=== PATIENT | female | born 1940 | race Caucasian/White ===

== ENCOUNTER → 2016-05-31 | Outpatient (CLI) | payer MEDICARE ==
[~2016-05-31] MED LIST: ASPIRIN ADULT L81 M2 PO; CALCIUM1 CAP PO; CARDIZEM CD180 MG PO; COREG12.5 MG PO; FISH OIL 500MG500 MG PO; HYDROCODONE BIT1 T11 PO; K-DUR 20MEQ20 MEQ; LANOXIN125 MCG/2. PO; LASIX40 MG PO; LOPRESSOR100 MG PO; MEGA MULTIVITAM1 TAB PO; PROTONIX40 MG PO; RISPERDAL0.5 MG PO; SINGULAIR10 MG PO; VITAMIN C500 MG PO; XARELTO10 PO; ZOCOR20 MG PO; [UNRECOGNIZED DRUG - OTHER] PO
[2016-05-31 15:49] LABS: BASO % 0.5 % (0.0-1.0); EOS # 0.1 10*3/uL (0.0-0.4); EOS % 2.1 % (1.0-4.0); HEMATOCRIT 41.8 % (37.0-47.0); HEMOGLOBIN 13.2 g/dl (12.0-16.0); LYMPH # 2.4 10*3/uL (1.3-4.4); LYMPH % 42.4 % (27.0-41.0); MEAN CELL VOLUME 86.9 fl (81.0-99.0); MEAN CORPUSCULAR HGB 27.4 pg (27.0-31.0); MEAN CORPUSCULAR HGB CONC 31.6 g/dl (33.0-37.0); MEAN PLATELET VOLUME 9.9 fl (9.6-12.3); MONO # 0.6 10*3/uL (0.1-1.0); MONO % 10.4 % (3.0-9.0); NEUT # 2.5 10*3/uL (2.3-7.9); NEUT % 44.2 % (47.0-73.0); PLATELET COUNT AUTOMATED 153 10*3/uL (130-400); RED BLOOD COUNT 4.81 10*6/uL (4.10-5.10); RED CELL DISTRI WIDTH 13.9 % (0-14.5); WHITE BLOOD COUNT 5.7 10*3/uL (4.8-10.8)
[2016-05-31 16:04] LABS: HEMOGLOBIN A1c 5.9 % (4.8-5.6)
[2016-05-31 16:17] LABS: ALBUMIN 3.7 gm/dl (3.1-4.5); ALKALINE PHOSPHATASE 137 U/L (45-117); BILIRUBIN, DIRECT 0.1 mg/dL (0.0-0.2); BILIRUBIN, TOTAL 0.6 mg/dl (0.2-1.0); BUN 18 mg/dl (7-24); CARBON DIOXIDE 32 mmol/L (21-32); CHLORIDE 106 mmol/L (98-107); EST GLOM FILT AFRICAN AMERICAN > 60 ml/min; GLUCOSE 79 mg/dL (65-99); POTASSIUM 4.1 mmol/L (3.5-5.1); SGOT/AST 23 IU/L (3-35); SGPT/ALT 28 U/L (12-78); SODIUM 144 mmol/L (136-145); TOTAL PROTEIN 7.3 gm/dL (6.4-8.2)
== END | disposition home or self-care (01) ==
LOC: LAB 15:33
PROVIDERS: Family Medicine
DX: E11.9 Type 2 diabetes mellitus without complications (principal)

== ENCOUNTER → 2017-01-24 | Outpatient (CLI) | payer MEDICARE ==
[2017-01-24 11:04] LABS: BASO % 0.5 % (0.0-1.0); EOS # 0.1 10*3/uL (0.0-0.4); EOS % 1.8 % (1.0-4.0); HEMATOCRIT 41.6 % (37.0-47.0); HEMOGLOBIN 13.3 g/dl (12.0-16.0); LYMPH % 32.4 % (27.0-41.0); MEAN CELL VOLUME 88.7 fl (81.0-99.0); MEAN CORPUSCULAR HGB 28.4 pg (27.0-31.0); MEAN PLATELET VOLUME 10.8 fl (9.6-12.3); MONO # 0.6 10*3/uL (0.1-1.0); MONO % 9.3 % (3.0-9.0); NEUT # 3.5 10*3/uL (2.3-7.9); NEUT % 55.5 % (47.0-73.0); PLATELET COUNT AUTOMATED 169 10*3/uL (130-400); RED BLOOD COUNT 4.69 10*6/uL (4.10-5.10); RED CELL DISTRI WIDTH 13.4 % (0-14.5); WHITE BLOOD COUNT 6.3 10*3/uL (4.8-10.8)
[2017-01-24 11:29] LABS: ALBUMIN 3.8 gm/dl (3.1-4.5); ALKALINE PHOSPHATASE 124 U/L (45-117); BUN 17 mg/dl (7-24); CHLORIDE 103 mmol/L (98-107); HDL CHOLESTEROL 69 mg/dl (40-60); POTASSIUM 3.9 mmol/L (3.5-5.1); SODIUM 144 mmol/L (136-145); TOTAL PROTEIN 7.4 gm/dL (6.4-8.2)
[2017-01-24 11:34] LABS: BILIRUBIN, DIRECT 0.1 mg/dL (0.0-0.2); CHOLESTEROL 134 mg/dL (<200); CREATININE 0.82 mg/dL (0.55-1.02); LDL CHOLESTEROL 53 mg/dL (9-159); SGOT/AST 22 IU/L (3-35); SGPT/ALT 29 U/L (12-78); THYROID STIM HORMONE (HS) 0.837 uIU/ml (0.358-4.75); THYROXINE (T4) TOTAL 13.4 ug/dl (4.8-13.9); TRIGLYCERIDES 58 mg/dl (<150); VLDL CHOLESTEROL 12 mg/dL (6-40)
== END | disposition home or self-care (01) ==
LOC: LAB 10:26
PROVIDERS: Family Medicine
DX: I10 Essential (primary) hypertension (principal); E11.9 Type 2 diabetes mellitus without complications; E55.9 Vitamin D deficiency, unspecified; R44.3 Hallucinations, unspecified

== ENCOUNTER → 2017-03-15 | Outpatient (CLI) | payer MEDICARE | END | disposition home or self-care (01) | LOC: CT 08:00 | DX: R41.82 Altered mental status, unspecified (principal); R44.3 Hallucinations, unspecified ==

== ENCOUNTER → 2017-07-21 | Outpatient (CLI) | payer MEDICARE ==
[2017-07-21 11:20] LABS: ALBUMIN 3.9 gm/dl (3.1-4.5); ALKALINE PHOSPHATASE 135 U/L (45-117); BUN 19 mg/dl (7-24); CHLORIDE 103 mmol/L (98-107); CREATININE 0.76 mg/dL (0.55-1.02); POTASSIUM 3.8 mmol/L (3.5-5.1); SGOT/AST 23 IU/L (3-35); SGPT/ALT 33 U/L (12-78); SODIUM 142 mmol/L (136-145); TOTAL PROTEIN 7.5 gm/dL (6.4-8.2)
[2017-07-25 18:07] LABS: METHYLMALONIC ACID 706961 310 nmol/L (0-378)
== END | disposition home or self-care (01) ==
LOC: LAB 10:16
PROVIDERS: Psychiatry & Neurology Neurology
DX: R44.3 Hallucinations, unspecified (principal); R41.89 Other symptoms and signs involving cognitive functions and awareness; Z79.899 Other long term (current) drug therapy

== ENCOUNTER 2017-12-23 07:26 | Inpatient (IN) | payer MEDICARE ==
[2017-12-23] VITALS (8 sets, daily range): BP systolic 105–148; BP diastolic 54–92
[~2017-12-23] VITALS: Ht 157.4 cm; Wt 70.0 kg
--- NOTE | ~2017-12-23 | EKG ---
[place], [place] ELECTROCARDIOGRAM REPORT NAME: DANIEL TYSON UNIT #: [id number] ROOM: 508 DOCTOR: EVAN DRAFT REPORT BIRTHDATE: [birth year] [facility] Test Date: 2017-12-23 Test Time: 08:00:17 Pat Name: DANIEL TYSON Department: Room: 508 Gender: F Health Science Specialist: JENNIFER : 1940 Requested By: ANOOP SANTAMARIA Order Number: [id number] Reading MD: Josh Flowers MD Measurements Intervals [place] Rate: 83 P: VT: QRS: 78 QRSD: 98 T: 56 QT: 434 QTc: 510 Interpretive Statements Atrial fibrillation Prolonged QT interval No previous ECG available for comparison Electronically Signed On 12-24-2017 15:25:37 PST by Josh Flowers MD CM:EKGRPT:ELECTROCARDIOGRAM REPORT [id number] ANOOP GORDON DRAFT REPORT ANOOP SANTAMARIA MD
--- NOTE | ~2017-12-23 | CON ---
[place], [place] REPORT OF CONSULTATION NAME: DANIEL TYSON UNIT #: [id number] ROOM: 508 DOCTOR: PABLO PHD ELSIE BIRTHDATE: [birth year] DOS: 12/25/2017 HISTORY OF PRESENT ILLNESS: The patient is a 77-year-old female with a history of dementia and mild intellectual disability, who was referred by the hospitalist for competency evaluation at the present time. The patient is on the 5th floor at [facility]. CT of her head on 12/29/2017 was negative for acute findings. The patient is a poor historian. She states she was never and has no children and left school after the eighth grade. She reports that her doctor did not allow her to work for her medical record. She has a history of intellectual disability and her mother was her guardian until her about a year ago. The patient lives with her caregiver, Glory, who has the paperwork for guardianship, but has not completed the process. I attempted to reach Glory, but she did not answer the phone. SOCIAL HISTORY: The patient denied alcohol, tobacco and illegal drug use. PAST MEDICAL HISTORY: Anxiety, atrial fibrillation, dementia, depression, hypertension, GERD, hyperlipidemia, mild intellectual disability. MEDICATIONS: Aspirin, K-Dur, Zoloft, Aricept, Cardizem, Singulair, Lasix, Xarelto, Humalog, Xanax. The patient was sitting comfortably in no apparent distress. She was oriented to person, month and day. She gave the year as 1999 and the president as Yonis. She could not give any current events. Eye contact and social skills were appropriate. She was pleasant and cooperative with evaluation. Affect was restricted in range and mood was stable. The patient denied suicidal and homicidal ideation, plan, and intent. She denied a need or desire for mental health treatment at this time. Speech was within normal limits with respect to rhythm, rate, volume and tone. Thought process was confused. Thought content was negative for hallucinations or delusions. Insight and judgment were fair. The patient was not able to discuss her medical conditions or medications. Glory helps her to take care of her medications and the patient states that she is alone for the majority of the day while Glory is at work. The patient earned a score of 6/30 on the Aurelio Cognitive assessment with an intact score being 26. Mini trials B Necker cube copy and clock drawing were impaired. The patient was not able to draw all of the numbers on the clock or put the hands on it. Attention was impaired with the patient not being able to produce 5 digits forward or 3 digits backwards. She made multiple errors of commission on a test of vigilance and could not complete any serial 7 subtractions. With respect to language abilities, she was not able to repeat any sentences correctly and made many errors of omission and commission. She was not able to produce any words in 1 minute on a test of verbal fluency. She did not complete any correct, naming was impaired with the patient not being able to name any animals correctly. Verbal abstraction was noteworthy for concreteness. On the test of memory, the patient was able to recall 2/5 and 1/5 words on immediate recall trials and 0/5 words for the delayed recall. Performance did not improve with category cues and she was able to identify 1/5 words correctly with multiple choice. She demonstrated significant ease of confusion during this test. SUMMARY: Overall, the patient demonstrated significant cognitive deficits in [place], [place] REPORT OF CONSULTATION NAME: DANIEL TYSON UNIT #: [id number] ROOM: 508 DOCTOR: PHD ELSIE MALONEY BIRTHDATE: [birth year] the areas of executive functioning, attention, language and memory. Contributing factors likely include her history of intellectual disability. Other contributing factors may include her history of hypertension, hyperlipidemia, depression and medication effects. In my opinion, the patient does not appear competent to make her own medical decisions at this time. She would benefit from establishing a guardian. Paperwork for emergency guardianship cannot be filed as the patient is a [place] resident. DIAGNOSES: Rule out intellectual disability, mild; unspecified neurocognitive disorder; major depressive disorder, recurrent, unspecified. RECOMMENDATIONS: The patient would benefit from establishing a guardian. Her caregiver has paperwork for her medical record, but it has not yet completed the process yet. Attempts to reach her caregiver were unsuccessful. PLAN: Given the patient's cognitive deficits and most recent episode of wandering at night, she would benefit from increased care and supervision. The patient's mood and behavior appear stable at this time and she does not appear to be appropriate candidate for the [facility]. The patient denied a need or desire for mental health treatment. Thank you very much for this consult. Raisa Maloney, PhD CM:CONSTR:REPORT OF CONSULTATION 1647 12/26/17 0153 [id number]
[~2017-12-23 07:26] MED LIST changes: -LOPRESSOR100 MG PO; +LOPRESSOR50 M1 PO
[2017-12-23 08:01] LABS: BILIRUBIN NEGATIVE (NEGATIVE); BLOOD NEGATIVE (NEGATIVE); CLARITY SL CLOUDY (CLEAR); COLOR YELLOW (YELLOW); GLUCOSE 2+ (NEGATIVE); KETONE 1+ (NEGATIVE); LEUKO ESTERASE NEGATIVE (NEGATIVE); NITRITE NEGATIVE (NEGATIVE); PH 5.5 (5.0-9.0); SPECIFIC GRAVITY >= 1.030 (1.005-1.030); UROBILINOGEN 0.2 E.U./dl (0.2-1.0)
[2017-12-23 08:17] LABS: BASO % 0.4 % (0.0-1.0); EOS % 0.2 % (1.0-4.0); HEMOGLOBIN 13.8 g/dl (12.0-16.0); LYMPH # 0.9 10*3/uL (1.3-4.4); LYMPH % 9.8 % (27.0-41.0); MEAN CELL VOLUME 89.6 fl (81.0-99.0); MEAN CORPUSCULAR HGB 28.1 pg (27.0-31.0); MEAN CORPUSCULAR HGB CONC 31.4 g/dl (33.0-37.0); MEAN PLATELET VOLUME 10.9 fl (9.6-12.3); MONO # 0.4 10*3/uL (0.1-1.0); MONO % 4.1 % (3.0-9.0); NEUT # 7.8 10*3/uL (2.3-7.9); PLATELET COUNT AUTOMATED 150 10*3/uL (130-400); RED BLOOD COUNT 4.91 10*6/uL (4.10-5.10); RED CELL DISTRI WIDTH 13.5 % (0-14.5); WHITE BLOOD COUNT 9.1 10*3/uL (4.8-10.8)
[2017-12-23 08:26] LABS: ACT PARTIAL THROMBO TIME 30.7 SECONDS (20.8-31.5); INTERNATIONAL NORM RATIO 1.1 (2.0-3.5)
[2017-12-23 08:30] LABS: BACTERIA 2+; RBC 16-20 rbc/hpf (0-2)
[2017-12-23 08:33] LABS: ALBUMIN 3.7 gm/dl (3.1-4.5); ALKALINE PHOSPHATASE 141 U/L (45-117); BUN 19 mg/dl (7-24); CHLORIDE 101 mmol/L (98-107); POTASSIUM 3.5 mmol/L (3.5-5.1); SGOT/AST 27 IU/L (3-35); SGPT/ALT 36 U/L (12-78); SODIUM 138 mmol/L (136-145); TOTAL PROTEIN 7.6 gm/dL (6.4-8.2)
[2017-12-23 09:29] LABS: TROPONIN I < 0.015 ng/ml (<0.045)
[2017-12-23] MEDS ORDERED: AMARYL1 M1 PO (10:59)
[2017-12-23] MEDS ORDERED: XANAX0.25 MG PO (11:00)
[2017-12-23] MEDS ORDERED: ARICEPT10 M1 PO (11:00)
[2017-12-23] MEDS ORDERED: POTASSIUM CHLO20 ME3 PO (11:02)
[2017-12-23] MEDS ORDERED: ZOLOFT50 MG PO (11:05)
[2017-12-23] MEDS ORDERED: CALCIUM 600 +1 EAC2 PO (13:17)
[2017-12-23] MEDS ORDERED: OMEGA 3-6-9 11200 MG PO (13:18)
[2017-12-23] MEDS ORDERED: ASPIRIN CHEWABL81 MG PO (13:19)
[2017-12-23] MEDS ORDERED: MULTIPLE VITAM1 EAC1 PO (13:20)
[2017-12-23] MEDS ORDERED: EMERGEN-C 500500 MG PO (13:20)
[2017-12-23] MEDS ORDERED: AREDS PO (13:21)
[2017-12-24] VITALS: BP 136/66
[2017-12-24 04:00] VITALS: BP 131/47
[2017-12-24 04:49] LABS: BASO % 0.5 % (0.0-1.0); EOS # 0.1 10*3/uL (0.0-0.4); EOS % 1.2 % (1.0-4.0); HEMATOCRIT 38.8 % (37.0-47.0); HEMOGLOBIN 12.2 g/dl (12.0-16.0); LYMPH # 2.5 10*3/uL (1.3-4.4); MEAN CELL VOLUME 87.4 fl (81.0-99.0); MEAN CORPUSCULAR HGB 27.5 pg (27.0-31.0); MEAN CORPUSCULAR HGB CONC 31.4 g/dl (33.0-37.0); MEAN PLATELET VOLUME 10.9 fl (9.6-12.3); MONO # 0.7 10*3/uL (0.1-1.0); NEUT # 3.2 10*3/uL (2.3-7.9); PLATELET COUNT AUTOMATED 151 10*3/uL (130-400); RED BLOOD COUNT 4.44 10*6/uL (4.10-5.10); RED CELL DISTRI WIDTH 13.8 % (0-14.5); WHITE BLOOD COUNT 6.6 10*3/uL (4.8-10.8)
[2017-12-24 05:08] LABS: ALKALINE PHOSPHATASE 119 U/L (45-117); BUN 14 mg/dl (7-24); CHLORIDE 107 mmol/L (98-107); CHOLESTEROL 161 mg/dL (<200); CREATININE 0.66 mg/dL (0.55-1.02); FREE T4 1.15 ng/dl (0.76-1.46); HDL CHOLESTEROL 52 mg/dl (40-60); LDL CHOLESTEROL 90 mg/dL (9-159); POTASSIUM 3.2 mmol/L (3.5-5.1); SGOT/AST 27 IU/L (3-35); SGPT/ALT 31 U/L (12-78); SODIUM 143 mmol/L (136-145); TOTAL PROTEIN 6.2 gm/dL (6.4-8.2); TRIGLYCERIDES 96 mg/dl (<150); VLDL CHOLESTEROL 19 mg/dL (6-40)
[2017-12-24 05:12] LABS: THYROID STIM HORMONE (HS) 0.632 uIU/ml (0.358-4.75)
[2017-12-24 08:00] VITALS: BP 138/54
[2017-12-24 08:23] LABS: VITAMIN D, 25-HYDROXY 62.4 ng/mL (30-100)
[2017-12-24 12:00] VITALS: BP 130/44
[2017-12-24 16:00] VITALS: BP 142/90
[2017-12-24 20:00] VITALS: BP 135/59
[2017-12-25] VITALS: BP 128/62
[2017-12-25 06:09] LABS: BUN 18 mg/dl (7-24); CHLORIDE 103 mmol/L (98-107); CREATININE 0.66 mg/dL (0.55-1.02); POTASSIUM 3.2 mmol/L (3.5-5.1); SODIUM 141 mmol/L (136-145)
[2017-12-25 06:10] LABS: BASO % 0.7 % (0.0-1.0); EOS # 0.1 10*3/uL (0.0-0.4); EOS % 1.3 % (1.0-4.0); HEMATOCRIT 39.4 % (37.0-47.0); HEMOGLOBIN 12.7 g/dl (12.0-16.0); LYMPH # 1.9 10*3/uL (1.3-4.4); LYMPH % 31.1 % (27.0-41.0); MEAN CELL VOLUME 86.8 fl (81.0-99.0); MEAN CORPUSCULAR HGB CONC 32.2 g/dl (33.0-37.0); MEAN PLATELET VOLUME 10.8 fl (9.6-12.3); MONO # 0.7 10*3/uL (0.1-1.0); MONO % 10.7 % (3.0-9.0); NEUT # 3.4 10*3/uL (2.3-7.9); NEUT % 55.9 % (47.0-73.0); PLATELET COUNT AUTOMATED 152 10*3/uL (130-400); RED BLOOD COUNT 4.54 10*6/uL (4.10-5.10); RED CELL DISTRI WIDTH 13.5 % (0-14.5); WHITE BLOOD COUNT 6.1 10*3/uL (4.8-10.8)
[2017-12-25 08:00] VITALS: BP 138/86
[2017-12-25 12:00] VITALS: BP 121/58
[2017-12-25 16:00] VITALS: BP 119/49
[2017-12-25 20:00] VITALS: BP 143/84
[2017-12-26] VITALS: BP 120/80
[2017-12-26 07:02] LABS: BASO % 0.5 % (0.0-1.0); EOS # 0.1 10*3/uL (0.0-0.4); EOS % 1.8 % (1.0-4.0); HEMATOCRIT 41.9 % (37.0-47.0); HEMOGLOBIN 13.2 g/dl (12.0-16.0); LYMPH % 30.6 % (27.0-41.0); MEAN CELL VOLUME 87.1 fl (81.0-99.0); MEAN CORPUSCULAR HGB 27.4 pg (27.0-31.0); MEAN CORPUSCULAR HGB CONC 31.5 g/dl (33.0-37.0); MEAN PLATELET VOLUME 10.9 fl (9.6-12.3); MONO # 0.7 10*3/uL (0.1-1.0); NEUT # 3.7 10*3/uL (2.3-7.9); NEUT % 56.6 % (47.0-73.0); PLATELET COUNT AUTOMATED 166 10*3/uL (130-400); RED BLOOD COUNT 4.81 10*6/uL (4.10-5.10); RED CELL DISTRI WIDTH 13.5 % (0-14.5); WHITE BLOOD COUNT 6.5 10*3/uL (4.8-10.8)
[2017-12-26 07:32] LABS: BUN 18 mg/dl (7-24); CHLORIDE 101 mmol/L (98-107); CREATININE 0.66 mg/dL (0.55-1.02); POTASSIUM 3.6 mmol/L (3.5-5.1); SODIUM 142 mmol/L (136-145)
[2017-12-26 08:00] VITALS: BP 104/58
[2017-12-26 12:00] VITALS: BP 132/70
[2017-12-26 16:00] VITALS: BP 127/77
[2017-12-26 20:00] VITALS: BP 138/80
[2017-12-27] VITALS: BP 145/64
[2017-12-27 06:44] LABS: BASO # 0.1 10*3/uL (0.0-0.1); BASO % 0.8 % (0.0-1.0); EOS # 0.1 10*3/uL (0.0-0.4); HEMATOCRIT 43.4 % (37.0-47.0); LYMPH # 2.6 10*3/uL (1.3-4.4); LYMPH % 39.9 % (27.0-41.0); MEAN CELL VOLUME 87.1 fl (81.0-99.0); MEAN CORPUSCULAR HGB 28.1 pg (27.0-31.0); MEAN CORPUSCULAR HGB CONC 32.3 g/dl (33.0-37.0); MEAN PLATELET VOLUME 10.8 fl (9.6-12.3); MONO # 0.7 10*3/uL (0.1-1.0); MONO % 9.8 % (3.0-9.0); NEUT # 3.1 10*3/uL (2.3-7.9); PLATELET COUNT AUTOMATED 180 10*3/uL (130-400); RED BLOOD COUNT 4.98 10*6/uL (4.10-5.10); RED CELL DISTRI WIDTH 13.3 % (0-14.5); WHITE BLOOD COUNT 6.6 10*3/uL (4.8-10.8)
[2017-12-27 06:58] LABS: BUN 24 mg/dl (7-24); CHLORIDE 101 mmol/L (98-107); POTASSIUM 3.9 mmol/L (3.5-5.1); SODIUM 139 mmol/L (136-145)
[2017-12-27 08:00] VITALS: BP 156/77
[2017-12-27 12:00] VITALS: BP 124/73
[2017-12-27 16:00] VITALS: BP 151/62
[2017-12-27 20:00] VITALS: BP 112/82
[2017-12-28] VITALS: BP 131/65
[2017-12-28 08:00] VITALS: BP 136/40
[2017-12-28 12:00] VITALS: BP 126/64
[2017-12-28 16:00] VITALS: BP 116/60
[2017-12-28 20:00] VITALS: BP 125/61
[2017-12-29] VITALS: BP 146/90
[2017-12-29 08:00] VITALS: BP 143/48
[2017-12-29 12:00] VITALS: BP 130/48
[2017-12-29] MEDS ORDERED: LOPRESSOR25 MG PO (13:23)
== END 2017-12-29 15:28 | disposition home health service (06) | DRG 922 ==
LOC: ED 07:26 → ICCU 08:54 → 5E 08:54 → EDHOLD 08:54 → ICCU 09:25 → 5E 12-24 13:29
PROVIDERS: Emergency Medicine; Family Medicine; Internal Medicine
DX: T68.XXXA Hypothermia, initial encounter (principal); G93.41 Metabolic encephalopathy; E87.2 Acidosis; R65.10 Systemic inflammatory response syndrome (SIRS) of non-infectious origin without acute organ dysfunction; E44.0 Moderate protein-calorie malnutrition; F03.91 Unspecified dementia, unspecified severity, with behavioral disturbance; F33.9 Major depressive disorder, recurrent, unspecified; R73.9 Hyperglycemia, unspecified; R74.8 Abnormal levels of other serum enzymes; E66.3 Overweight; I48.91 Unspecified atrial fibrillation; F41.9 Anxiety disorder, unspecified; K21.9 Gastro-esophageal reflux disease without esophagitis; E78.5 Hyperlipidemia, unspecified; Z96.651 Presence of right artificial knee joint; R82.71 Bacteriuria; R81 Glycosuria; R80.9 Proteinuria, unspecified; E87.6 Hypokalemia; R41.9 Unspecified symptoms and signs involving cognitive functions and awareness; I10 Essential (primary) hypertension; M19.90 Unspecified osteoarthritis, unspecified site; Z96.642 Presence of left artificial hip joint; Z98.51 Tubal ligation status; Z82.49 Family history of ischemic heart disease and other diseases of the circulatory system; Z82.5 Family history of asthma and other chronic lower respiratory diseases; Z79.82 Long term (current) use of aspirin; Z79.899 Other long term (current) drug therapy; Z79.84 Long term (current) use of oral hypoglycemic drugs; Z68.28 Body mass index [BMI] 28.0-28.9, adult; X31.XXXA Exposure to excessive natural cold, initial encounter

== ENCOUNTER 2018-08-15 15:13 | Emergency (ER) | payer MEDICARE ==
[~2018-08-15] VITALS: Ht 167.6 cm; Wt 81.6 kg
[~2018-08-15 15:13] MED LIST changes: +AMARYL1 M1 PO; +AREDS PO; +ARICEPT10 M1 PO; +ASPIRIN CHEWABL81 MG PO; +CALCIUM 600 +1 EAC2 PO; +EMERGEN-C 500500 MG PO; +LOPRESSOR25 MG PO; +MULTIPLE VITAM1 EAC1 PO; +OMEGA 3-6-9 11200 MG PO; +POTASSIUM CHLO20 ME3 PO; +XANAX0.25 MG PO; +ZOLOFT50 MG PO
== END 2018-08-15 18:30 | disposition home or self-care (01) ==
LOC: ED 15:13
DX: M13.862 Other specified arthritis, left knee (principal); I48.91 Unspecified atrial fibrillation; K21.9 Gastro-esophageal reflux disease without esophagitis; I10 Essential (primary) hypertension; E78.5 Hyperlipidemia, unspecified; Z60.2 Problems related to living alone; Z79.899 Other long term (current) drug therapy; Z79.82 Long term (current) use of aspirin; Z96.651 Presence of right artificial knee joint; Z96.642 Presence of left artificial hip joint; X58.XXXA Exposure to other specified factors, initial encounter; Y93.89 Activity, other specified; Y92.098 Other place in other non-institutional residence as the place of occurrence of the external cause; Y99.8 Other external cause status

== ENCOUNTER 2018-11-24 15:41 | Emergency (ER) | payer MEDICARE ==
[~2018-11-24] VITALS: Wt 64.4 kg
[2018-11-24 16:10] LABS: BILIRUBIN NEGATIVE (NEGATIVE); BLOOD NEGATIVE (NEGATIVE); CLARITY CLEAR (CLEAR); COLOR YELLOW (YELLOW); GLUCOSE NEGATIVE (NEGATIVE); KETONE NEGATIVE (NEGATIVE); LEUKO ESTERASE NEGATIVE (NEGATIVE); NITRITE NEGATIVE (NEGATIVE); PH 5.5 (5.0-9.0); SPECIFIC GRAVITY >= 1.030 (1.005-1.030)
[2018-11-24 16:18] LABS: BACTERIA TRACE; EPITHELIAL CELLS 0-2; MUCOUS TRACE; RBC 0-2 rbc/hpf (0-2); WBC 0-2 wbc/hpf (0-5)
== END 2018-11-24 16:50 | disposition home or self-care (01) ==
LOC: ED 15:41
PROVIDERS: Physician Assistant
DX: R35.0 Frequency of micturition (principal); R45.86 Emotional lability; F03.90 Unspecified dementia, unspecified severity, without behavioral disturbance, psychotic disturbance, mood disturbance, and anxiety; Z79.899 Other long term (current) drug therapy; Z79.82 Long term (current) use of aspirin

== ENCOUNTER → 2019-12-15 | Outpatient (CLI) | payer MEDICARE ==
[2019-12-15 10:51] LABS: MEAN CELL VOLUME 87.4 fl (81.0-99.0); MEAN CORPUSCULAR HGB 27.1 pg (27.0-31.0); MEAN PLATELET VOLUME 10.3 fl (9.6-12.3); RED BLOOD COUNT 4.69 10*6/uL (4.10-5.10); RED CELL DISTRI WIDTH 13.4 % (0-14.5); WHITE BLOOD COUNT 5.6 10*3/uL (4.8-10.8)
[2019-12-15 11:20] LABS: ALBUMIN 3.6 gm/dl (3.1-4.5); ALKALINE PHOSPHATASE 140 U/L (45-117); BILIRUBIN, DIRECT 0.1 mg/dL (0.0-0.2); BUN 23 mg/dl (7-24); CHLORIDE 108 mmol/L (98-107); CHOLESTEROL 201 mg/dL (<200); CREATININE 0.74 mg/dL (0.55-1.02); HDL CHOLESTEROL 75 mg/dl (40-60); LDL CHOLESTEROL 102 mg/dL (9-159); POTASSIUM 3.9 mmol/L (3.5-5.1); SGOT/AST 32 IU/L (3-35); SGPT/ALT 44 U/L (12-78); SODIUM 144 mmol/L (136-145); THYROXINE (T4) TOTAL 8.1 ug/dl (4.8-13.9); TOTAL PROTEIN 7.6 gm/dL (6.4-8.2); TRIGLYCERIDES 118 mg/dl (<150); VLDL CHOLESTEROL 24 mg/dL (6-40)
[2019-12-15 11:25] LABS: THYROID STIM HORMONE (HS) 0.854 uIU/ml (0.358-4.75)
== END | disposition home or self-care (01) ==
LOC: LAB 10:10
PROVIDERS: ATTEND Family Medicine
DX: I10 Essential (primary) hypertension (principal); Z79.899 Other long term (current) drug therapy

== ENCOUNTER → 2020-11-24 | Outpatient (CLI) | payer MEDICARE ==
[2020-11-24 09:57] LABS: BASO % 0.4 % (0.0-1.0); EOS # 0.1 10*3/uL (0.0-0.4); EOS % 1.2 % (1.0-4.0); HEMATOCRIT 39.6 % (37.0-47.0); LYMPH # 1.3 10*3/uL (1.3-4.4); LYMPH % 18.4 % (27.0-41.0); MEAN CORPUSCULAR HGB CONC 31.1 g/dl (33.0-37.0); MEAN PLATELET VOLUME 9.9 fl (9.6-12.3); MONO # 0.6 10*3/uL (0.1-1.0); MONO % 8.2 % (3.0-9.0); NEUT % 71.5 % (47.0-73.0); PLATELET COUNT AUTOMATED 166 10*3/uL (130-400); RED CELL DISTRI WIDTH 13.2 % (0-14.5); WHITE BLOOD COUNT 6.9 10*3/uL (4.8-10.8)
[2020-11-24 10:12] LABS: ALBUMIN 3.1 gm/dl (3.1-4.5); ALKALINE PHOSPHATASE 114 U/L (45-117); BUN 16 mg/dl (7-24); CHLORIDE 106 mmol/L (98-107); CHOLESTEROL 190 mg/dL (<200); CREATININE 0.77 mg/dL (0.55-1.02); LDL CHOLESTEROL 104 mg/dL (9-159); POTASSIUM 3.8 mmol/L (3.5-5.1); SGOT/AST 28 IU/L (3-35); SGPT/ALT 47 U/L (12-78); SODIUM 144 mmol/L (136-145); THYROXINE (T4) TOTAL 8.7 ug/dl (4.8-13.9); TOTAL PROTEIN 6.8 gm/dL (6.4-8.2); TRIGLYCERIDES 106 mg/dl (<150)
[2020-11-24 10:18] LABS: THYROID STIM HORMONE (HS) 0.924 uIU/ml (0.358-4.75)
== END | disposition home or self-care (01) ==
LOC: LAB 09:34 → EDSTATUS 09:35
PROVIDERS: ATTEND Family Medicine
DX: R73.9 Hyperglycemia, unspecified (principal); I49.9 Cardiac arrhythmia, unspecified; Z79.899 Other long term (current) drug therapy

== ENCOUNTER 2020-12-21 10:29 | Emergency (ER) | payer MEDICARE ==
[~2020-12-21] VITALS: Ht 170.1 cm; Wt 81.6 kg
[2020-12-21 11:44] LABS: BILIRUBIN Negative (Negative); BLOOD Trace-Intact (Negative); CLARITY Clear (Clear); COLOR Yellow (Yellow); GLUCOSE Negative (Negative); KETONE Negative (Negative); LEUKO ESTERASE Negative (Negative); NITRITE Negative (Negative); PH 6.5 (4.5-8.0); SPECIFIC GRAVITY <= 1.005 (1.001-1.030); UROBILINOGEN 0.2 E.U./dl (0.0-1.0)
[2020-12-21 11:53] LABS: BACTERIA TRACE
[2020-12-21] MEDS ORDERED: ANUSOL-HC25 MG R (12:14)
== END 2020-12-21 12:22 | disposition home or self-care (01) ==
LOC: ED 10:29
PROVIDERS: Physician Assistant
DX: K64.4 Residual hemorrhoidal skin tags (principal); Z79.899 Other long term (current) drug therapy; Z79.82 Long term (current) use of aspirin

== ENCOUNTER 2021-05-26 02:10 | Emergency (ER) | payer MEDICARE ==
[~2021-05-26] VITALS: Wt 62.7 kg
[~2021-05-26 02:10] MED LIST changes: +ANUSOL-HC25 MG R
[2021-05-26 02:31] LABS: HEMATOCRIT 42.3 % (37.0-47.0); MEAN CORPUSCULAR HGB 25.8 pg (27.0-31.0); MEAN CORPUSCULAR HGB CONC 28.4 g/dl (33.0-37.0); MEAN PLATELET VOLUME 10.7 fl (9.6-12.3); NUCLEATED RED BLOOD CELL 0.1 10*3/uL (0.0-0.0); NUCLEATED RED BLOOD CELL 0.8 % (0.0-0.0); PLATELET COUNT AUTOMATED 241 10*3/uL (130-400); RED BLOOD COUNT 4.65 10*6/uL (4.10-5.10); RED CELL DISTRI WIDTH 15.2 % (0-14.5); WHITE BLOOD COUNT 9.4 10*3/uL (4.8-10.8)
[2021-05-26 02:32] LABS: MANUAL DIFF REFLEX YES
[2021-05-26 02:42] LABS: ACT PARTIAL THROMBO TIME 27.5 SECONDS (20.0-32.1); INTERNATIONAL NORM RATIO 1.3 (2.0-3.5)
[2021-05-26 02:47] LABS: CREATININE 1.37 mg/dL (0.55-1.02); POTASSIUM 4.6 mmol/L (3.5-5.1); TOTAL PROTEIN 5.5 gm/dL (6.4-8.2)
[2021-05-26 02:52] LABS: BASOPHILS 1 % (0-1); PLATELET SUFFICIENCY NORMAL (NORMAL); TOTAL CELLS COUNTED 100 #CELLS
[2021-05-26 02:53] LABS: THYROID STIM HORMONE (HS) 2.6 uIU/ml (0.358-4.75)
== END 2021-05-26 07:31 | disposition short-term general hospital (02) ==
LOC: ED 02:10
PROVIDERS: Emergency Medicine
DX: I46.9 Cardiac arrest, cause unspecified (principal); Z79.899 Other long term (current) drug therapy; Z98.890 Other specified postprocedural states

== ENCOUNTER 2021-09-08 05:17 | Emergency (ER) | payer MEDICARE ==
[~2021-09-08] VITALS: Wt 56.2 kg
== END 2021-09-08 05:20 ==
LOC: ED 05:17
DX: I46.9 Cardiac arrest, cause unspecified (principal); Z79.899 Other long term (current) drug therapy; Z79.82 Long term (current) use of aspirin; Z98.890 Other specified postprocedural states; Z98.51 Tubal ligation status